=== PATIENT | female | born 1990 | race Caucasian/White ===

== ENCOUNTER 2017-01-15 20:18 | Inpatient (IN) ==
[2017-01-15 21:21] LABS: Bilirubin,Urine Negative (Negative); Blood,Urine Negative (Negative); Clarity,Urine Cloudy (Clear); Color,Urine Yellow (Yellow); Glucose,Urine (UA) Normal (Normal); Ketones,Urine Negative (Negative); Leukocyte Esterase,Urine Small (Negative); Nitrite,Urine Positive (Negative); PH,Urine 7.5 pH Units (5.0-8.0); Protein,Urine Negative (Neg-Trace); Specific Gravity,Urine 1.018 (1.010-1.025); Urobilinogen,Urine Normal (Normal)
[2017-01-15 21:22] LABS: Bacteria,Urine Many per hpf (None-Few); Hyaline Casts,Urine None Seen per lpf (None-Few); RBC,Urine 0-3 per hpf (0-3); Squamous Epithelial Cell,Urine Many per lpf (None-Few)
[2017-01-15 21:26] LABS: Basophils % 0.2 %; Eosinophils # 0.1 K/mcL (0.0-0.6); Eosinophils % 0.9 %; Hematocrit 44.2 % (35.3-44.9); Hemoglobin 14.5 g/dL (11.5-15.4); Immature Granulocytes % 0.3 % (0-4); Lymphocytes # 1.3 K/mcL (0.6-4.6); Lymphocytes % 10.5 %; Mean Corpuscular HGB Conc 32.8 g/dL (31.6-35.5); Mean Corpuscular Hemoglobin 28.9 pg (28.0-33.3); Mean Corpuscular Volume 88.2 fL (83.0-100.0); Monocytes # 0.9 K/mcL (0.0-1.3); Monocytes % 7.3 %; Neutrophils # 9.7 K/mcL (1.6-8.9); Platelet Count 258 K/mcL (140-400); Red Blood Count 5.01 M/mcL (3.82-4.97); Segmented Neutrophils % 80.8 %
[2017-01-15 21:35] LABS: Blood Urea Nitrogen 10 mg/dL (7-20); Carbon Dioxide 24 mEq/L (19-29); Chloride 105 mEq/L (98-109); Potassium 3.5 mEq/L (3.5-4.5); Sodium 140 mEq/L (136-145)
[2017-01-15 21:36] LABS: BUN/Creatinine Ratio 13 (6-26); Calcium 9.9 mg/dL (8.6-10.8); Glucose 105 mg/dL (70-99); Osmolality,Calculated 289 (280-300); eGFR For African Americans > 60 (> 60); eGFR For Non-African Americans > 60 (> 60)
[2017-01-15] MEDS ORDERED: 0.9 % Sodium Chloride 1,000 ML IVC ONE (21:48)
--- NOTE | 2017-01-15 21:51 | Emergency Department Note ---
Disposition Clinical Impression: Pyelonephritis Disposition: Admitted As Inpatient Condition: Good Referrals: NO,PCP [Primary Care Provider] - Forms: ED Satisfaction Letter Time of Disposition: 21:51 Female Urogenital HPI - General Chief complaint: ED Urogenital-Female Stated complaint: possible kidney infection Time Seen by Provider: 01/15/17 21:31 Source: patient Mode of arrival: ambulatory Limitations: language barrier Nursing Notes Reviewed: Yes Vital Signs Reviewed: Yes - History of Present Illness HPI Narrative: 26-year-old with a history of multiple previous kidney infections comes in with right flank pain fever or burning on urination. Patient's very nauseated came not eat or drink she feels she is dehydrated. Pt Subjective Complaint: dysuria, "UTI" Onset (ago): Just [employer] Location: suprapubic Radiation: R flank Severity: moderate Quality: aching Duration: constant Improves with: none Worsens with: none Urinary Symptoms: dysuria, urgency, frequency, foul smelling urine : no - Related Data Home Medications Medication Instructions Recorded Confirmed No Known Home Drugs 01/15/17 01/15/17 Allergies Allergy/AdvReac Type Severity Reaction Status Date / Time No Known Allergies Allergy Verified 01/15/17 20:25 Constitutional: Reports: fever. Denies: chills, weakness, weight change Eyes: Denies: eye pain, eye discharge, vision change ENT ED: Denies: ear pain, throat pain, dental pain, hearing loss, epistaxis, congestion, dysphagia Cardiovascular: Denies: chest pain, palpitations, dyspnea on exertion, edema, syncope Respiratory: Denies: cough, dyspnea, wheezes, hemoptysis, stridor Gastrointestinal: Reports: abdominal pain. Denies: nausea, vomiting, diarrhea, constipation, hematemesis, melena, hematochezia Genitourinary: Denies: dysuria, frequency, hematuria, discharge Musculoskeletal: Reports: back pain. Denies: neck pain, arthralgia, myalgia Integumentary: Denies: rash, abrasion, lesions Neurological: Denies: headache, weakness, numbness, paresthesias, confusion, abnormal gait, vertigo Psychiatric: Denies: anxiety, depression, suicidal thoughts, homicidal thoughts , auditory hallucinations, visual hallucinations Endocrine: Denies: fatigue Hematological/Lymphatic: Denies: easy bleeding, easy bruising Allergic/Immunologic: Denies: facial swelling, urticaria Past Medical History - Past Medical History Medical history: Reports: kidney stones Surgical history: Reports: other (Suction D&C 2 with the ureteroscope for kidney stone extraction) Psychiatric history: Reports: no psych history - Social History Smoking Status: Current every day smoker Smokeless Tobacco Status: No Alcohol use: Reports: none Drug use: Reports: none Physical Exam - General Limitations: language barrier General appearance: alert - Head Head exam: atraumatic, normocephalic, normal inspection - Eye Eye exam: Present: normal appearance, PERRL, EOMI - ENT ENT exam: mucous membranes dry - Neck Neck exam: Present: normal inspection, full ROM, trachea midline - Chest Chest inspection: Present: normal inspection, symmetric chest wall rise - Respiratory Respiratory exam: Present: normal lung sounds bilaterally - Cardiovascular Cardiovascular exam: Present: regular rate - Abdominal Exam Abdominal exam: Present: soft, tenderness. Absent: distention, guarding, rebound, rigidity Abdominal tenderness: Present: suprapubic - Extremities Exam Extremities exam: Present: normal inspection, full ROM. Absent: tenderness, pedal edema - Expanded Lower Extremity Exam Neurovascular/Tendon exam: Absent: motor deficit, sensory deficit, tendon deficit Gait: observed and normal - Back Exam Back exam: Present: normal inspection, full ROM. Absent: tenderness - Neurological Exam Neurological exam: Present: alert, oriented X3 - Psychiatric Psychiatric exam: Present: normal affect, normal mood - Skin Skin exam: Present: warm, dry, intact, normal color Course - Reevaluation(s) Reevaluation #1: 26-year-old with fever right flank pain. 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 Patient is not eating or drinking will require admission. Time: 21:51 - Consultations Consultation #1: Discussed with Dr. Oliveros, admit Time: 22:17 Vital Signs Temperature 101.4 F H 01/15/17 20:19 Pulse Rate 103 01/15/17 20:19 Respiratory Rate 16 01/15/17 20:19 Blood Pressure 112/70 01/15/17 20:19 O2 Sat by Pulse Oximetry 97 01/15/17 20:19 Temperature 101.4 F H 01/15/17 20:19 Pulse Rate 103 01/15/17 20:19 Respiratory Rate 16 01/15/17 20:19 Blood Pressure 112/70 01/15/17 20:19 O2 Sat by Pulse Oximetry 97 01/15/17 20:19 Oxygen Delivery Oxygen Delivery Room Air Urogenital-Female - Lab Data Lab results reviewed: Yes I reviewed the patient's lab results. Result diagrams: 01/15/17 20:57 01/15/17 20:57 Lab Results 01/15/17 01/15/17 01/15/17 Range/Units 20:57 20:57 20:58 WBC 12.0 H (4.3-11.1) K/mcL RBC 5.01 H (3.82-4.97) M/mcL Hgb 14.5 (11.5-15.4) g/dL Hct 44.2 (35.3-44.9) % MCV 88.2 (83.0-100.0) fL MCH 28.9 (28.0-33.3) pg MCHC 32.8 (31.6-35.5) g/dL RDW 12.0 (11.5-14.5) % Plt Count 258 (140-400) K/mcL MPV 10.0 (9.4-12.4) fL Immature Gran % 0.3 (0-4) % Seg Neutrophils % 80.8 % Lymphocytes % 10.5 % Monocytes % 7.3 % Eosinophils % 0.9 % Basophils % 0.2 % Neutrophils # 9.7 H (1.6-8.9) K/mcL Lymphocytes # 1.3 (0.6-4.6) K/mcL Monocytes # 0.9 (0.0-1.3) K/mcL Eosinophils # 0.1 (0.0-0.6) K/mcL Basophils # 0.0 (0.0-0.2) K/mcL Sodium 140 (136-145) mEq/L Potassium 3.5 (3.5-4.5) mEq/L Chloride 105 (98-109) mEq/L Carbon Dioxide 24 (19-29) mEq/L BUN 10 (7-20) mg/dL Creatinine 0.79 (0.57-1.11) mg/dL Est GFR ( Amer) > 60 (> 60) Est GFR (Non-Af Amer) > 60 (> 60) BUN/Creatinine Ratio 13 (6-26) Glucose 105 H (70-99) mg/dL Calculated Osmolality 289 (280-300) Calcium 9.9 (8.6-10.8) mg/dL Urine Color Yellow (Yellow) Urine Clarity Cloudy A (Clear) Urine pH 7.5 (5.0-8.0) pH Units Ur Specific Central 1.018 (1.010-1.025) Urine Protein Negative (Neg-Trace) mg/dL Urine Glucose (UA) Normal (Normal) mg/dL Urine Ketones Negative (Negative) mg/dL Urine Blood Negative (Negative) Urine Nitrite Positive A (Negative) Urine Bilirubin Negative (Negative) Urine Urobilinogen Normal (Normal) mg/dL Ur Leukocyte Esterase Small H (Negative) Urine Microscopic RBC 0-3 (0-3) per hpf Urine Microscopic WBC 5-15 H (0-3) per hpf Ur Squamous Epith Cells Many H (None-Few) per lpf Urine Bacteria Many H (None-Few) per hpf Hyaline Casts None Seen (None-Few) per lpf Ur Culture Indicated? YES A (NO) Urine Test (Negative) 01/15/17 Range/Units 20:58 WBC (4.3-11.1) K/mcL RBC (3.82-4.97) M/mcL Hgb (11.5-15.4) g/dL Hct (35.3-44.9) % MCV (83.0-100.0) fL MCH (28.0-33.3) pg MCHC (31.6-35.5) g/dL RDW (11.5-14.5) % Plt Count (140-400) K/mcL MPV (9.4-12.4) fL Immature Gran % (0-4) % Seg Neutrophils % % Lymphocytes % % Monocytes % % Eosinophils % % Basophils % % Neutrophils # (1.6-8.9) K/mcL Lymphocytes # (0.6-4.6) K/mcL Monocytes # (0.0-1.3) K/mcL Eosinophils # (0.0-0.6) K/mcL Basophils # (0.0-0.2) K/mcL Sodium (136-145) mEq/L Potassium (3.5-4.5) mEq/L Chloride (98-109) mEq/L Carbon Dioxide (19-29) mEq/L BUN (7-20) mg/dL Creatinine (0.57-1.11) mg/dL Est GFR ( Amer) (> 60) Est GFR (Non-Af Amer) (> 60) BUN/Creatinine Ratio (6-26) Glucose (70-99) mg/dL Calculated Osmolality (280-300) Calcium (8.6-10.8) mg/dL Urine Color (Yellow) Urine Clarity (Clear) Urine pH (5.0-8.0) pH Units Ur Specific Central (1.010-1.025) Urine Protein (Neg-Trace) mg/dL Urine Glucose (UA) (Normal) mg/dL Urine Ketones (Negative) mg/dL Urine Blood (Negative) Urine Nitrite (Negative) Urine Bilirubin (Negative) Urine Urobilinogen (Normal) mg/dL Ur Leukocyte Esterase (Negative) Urine Microscopic RBC (0-3) per hpf Urine Microscopic WBC (0-3) per hpf Ur Squamous Epith Cells (None-Few) per lpf Urine Bacteria (None-Few) per hpf Hyaline Casts (None-Few) per lpf Ur Culture Indicated? (NO) Urine Test Negative (Negative)
[2017-01-15] MEDS ORDERED: Acetaminophen 325 MG TABLET PO PRN (22:54)
[2017-01-15] MEDS ORDERED: Ondansetron 4 MG/2 ML VIAL IVP PRN (22:54)
[2017-01-15] MEDS ORDERED: *HR* Morphine 2 MG/ML SYRINGE IVP PRN ×3 (22:54→23:22)
[2017-01-15] MEDS ORDERED: Naloxone 0.4 MG/ML INJ IVP PRN (22:54)
--- NOTE | 2017-01-15 23:09 | Internal Med History&Physical ---
Date of Encounter: 01/15/17 Time of Encounter: 23:05 Assessment and Plan (1) Pyelonephritis Current visit: Yes Status: Acute Patient presents with dysuria, flank pain, CVA tenderness. UA shows positive nitrates and small leukocyte esterase. Culture is pending. Review of past culture results show that the patient has had Escherichia coli infections in the past that are resistant to fluoroquinolones. Rocephin has been given the ED , we will continue Rocephin 1 g daily. We will obtain some noncontrast CT of the abdomen and pelvis to look for stone as well as possible signs of perinephric abscess. We will continue with fluid hydration and pain control. (2) Sepsis Current visit: Yes Status: Acute Patient meets sepsis criteria with a leukocytosis of 12.0, fever or 101.4, tachycardia with urinary tract infection to be the presumed source as discussed above. Patient was given an initial liter bolus in the emergency department, will give 2 more liters and then initiate IV maintenance fluid. Antibiotics have been initiated, blood and urine cultures have been drawn. Initial lactate is negative at 0.6. Qualifiers: Sepsis type: sepsis due to unspecified organism Qualified Code(s): A41.9 - Sepsis, unspecified organism (3) History of kidney stones Current visit: Yes Status: Acute Patient has had a history of kidney stones in the past that have required surgical removal by urology. UA was negative for blood. Given the patient's infections and symptoms we will obtain a noncontrast CT to rule out Stone as a source of infection (4) DVT prophylaxis Current visit: Yes Status: [facility] - H&P: HPI Chief complaint: Back pain/dysuria Admitted From: Emergency Dept Plans for Post Hospital Care: Home History of present illness: Ms. Bello is a 26 year old female with history of kidney stones and recurrent UTIs presents with back/flank pain and dysuria. Patient states her symptoms started 3 days ago, initially with right-sided back and flank pain and the patient eventually developed dysuria and suprapubic pain. Patient states the pain now radiates across her entire back, she has not been able to eat and has had difficulty keeping down fluids. She reports fevers and chills. She denies hematuria, any new sexual partners, vaginal discharge, lesions or sores in the genital area. She states she is sexually active and uses condoms. She states there is no chance she could be . Patient has been evaluated by urology in the past for recurrent UTIs and has been tested for vesiculoureteral reflux which was not present. Patient states that she has had a kidney stone in the past and has seen urology for kidney stone removal. Past Med Surg Social Fam HX - Past Medical History Medical history: kidney stones Psychiatric history: no psych history - Past Surgical History Surgical History: other (Suction D&C 2 with the ureteroscope for kidney stone extraction) - Social History Smoking Status: Current every day smoker Packs per day: 1/2 Smokeless Tobacco Status: No Alcohol use: none Drug use: none - Family History Mother Living Status: Hx Family Cardiac Disorders: Yes (anersyum) Hx Family Respiratory Disorders: No Hx Family Cancer: No Hx Family GI Disorders: No Hx Family Endocrine Disorder: No Hx Family Neuromuscular Disorders: No Hx Family Neurologic Disorders: No Hx Family HEENT Disorders: No Hx Family Autoimmune Disorders: No Internal Medicine - H&P: Meds No Known Home Drugs 01/15/17 [History] Allergies No Known Allergies Allergy (Verified 01/15/17 20:25) All Systems PM: A 10-system review of systems was performed and is negative for pertinent findings except as documented above in the HPI. - Constitutional Constitutional: chills, fever(s), lethargy - EENT Eyes: no blurry vision, no change in vision Nose, mouth and throat: no sinus pain, no sinus pressure, no sore throat - Cardiovascular Cardiovascular ROS IM: no chest pain, no dyspnea - Respiratory Respiratory: no cough, no dyspnea, no chest congestion - Gastrointestinal Gastrointestinal: abdominal pain, nausea, no diarrhea, no vomiting - Genitourinary Genitourinary: dysuria, pelvic pain, urinary frequency, urinary urgency, no genital lesions, no hematuria, no urinary incontinence, no vaginal discharge - Musculoskeletal Musculoskeletal ROS IM: no numbness, no tingling - Integumentary Integumentary IM: no rash - Neurological Neurological ROS: no dizziness, no frequent falls, no weakness - Endocrine Endocrine IM: no polydipsia, no polyuria - Constitutional Vitals: Temp Pulse Resp BP Pulse Ox 101.4 F H 103 16 112/70 97 01/15/17 20:19 01/15/17 20:19 01/15/17 20:19 01/15/17 20:19 01/15/17 20:19 General appearance: Present: A&O X 3 Exam: Appears uncomfortable, patient is constantly moving in bed and does not seem to be able to get into a comfortable position. - Eye Eye exam: Present: EOMI, PERRL - ENT ENT exam: Present: mucous membranes dry - Respiratory Respiratory exam: Present: CTAB. Absent: rales, rhonchi, wheezes - Cardiovascular Cardiovascular exam: Present: tachycardia. Absent: gallop, irregular rhythm, rubs, systolic murmur - GI/Abdominal GI/Abdominal exam: Present: normal bowel sounds, soft, tenderness (Suprapubic). Absent: distended, firm, rigid - Extremities Exam Extremities exam: Present: warm. Absent: pedal edema, tenderness - Back Exam Back exam: Present: CVA tenderness (L), CVA tenderness (R) (Right greater than left). Absent: rash noted - Neurological Exam Neurological exam: Present: alert, CN II-XII intact, oriented X3, no focal deficits - Psychiatric Psychiatric exam: Present: normal affect, normal mood - Skin Skin exam: Present: dry, intact, warm Internal Med - H&P Results - Labs CBC & Chem 7: 01/15/17 20:57 01/15/17 20:57
[2017-01-16] MEDS: 0.9 % Sodium Chloride 1,000 ML IVC SCH ×5 (00:30→13:33)
--- NOTE | 2017-01-16 01:57 | Event Note ---
Date of Encounter: 01/16/17 Time of Encounter: 01:54 Patient and examined with medical detailist. Agree with assessment and plan. Patient with recurrent urinary tract infection since the age of 6 years presents with acute pyelonephritis. She has prior history of kidney stones so a CT scan of the abdomen and pelvis was obtained without contrast and showed no evidence of obstructive uropathy. Onset of symptoms 3 days ago. Patient has also been having productive cough for the past week. X-ray was performed and shows left basilar pneumonia. Patient will be covered with ceftriaxone and azithromycin for UTI and community acquired pneumonia. She has not been on antibiotics as an outpatient. Sputum, urine and blood cultures.
[2017-01-16] MEDS: Azithromycin 500 MG in D5% in Water 250 ML IVPB SCH (03:10)
[2017-01-16 04:39] LABS: Basophils % 0.2 %; Eosinophils # 0.1 K/mcL (0.0-0.6); Eosinophils % 1.1 %; Hematocrit 37.4 % (35.3-44.9); Immature Granulocytes % 0.4 % (0-4); Lymphocytes # 2.4 K/mcL (0.6-4.6); Mean Corpuscular HGB Conc 32.6 g/dL (31.6-35.5); Mean Corpuscular Hemoglobin 29.1 pg (28.0-33.3); Mean Corpuscular Volume 89.3 fL (83.0-100.0); Mean Platelet Volume 10.2 fL (9.4-12.4); Monocytes # 1.3 K/mcL (0.0-1.3); Monocytes % 10.7 %; Neutrophils # 8.5 K/mcL (1.6-8.9); Platelet Count 216 K/mcL (140-400); Red Blood Count 4.19 M/mcL (3.82-4.97); Red Cell Distribution Width 11.9 % (11.5-14.5); Segmented Neutrophils % 68.6 %
[2017-01-16 04:46] LABS: Hemoglobin 12.2 g/dL (11.5-15.4)
[2017-01-16 05:25] LABS: BUN/Creatinine Ratio 10 (6-26); Blood Urea Nitrogen 7 mg/dL (7-20); Calcium 8.5 mg/dL (8.6-10.8); Carbon Dioxide 19 mEq/L (19-29); Chloride 110 mEq/L (98-109); Glucose 143 mg/dL (70-99); Magnesium 1.5 mg/dL (1.6-2.6); Osmolality,Calculated 288 (280-300); Potassium 3.5 mEq/L (3.5-4.5); Sodium 139 mEq/L (136-145); eGFR For African Americans > 60 (> 60); eGFR For Non-African Americans > 60 (> 60)
[2017-01-16] MEDS ORDERED: Magnesium Sulfate 2 GM in D5% in Water 100 ML IVPB ONE (06:28)
[2017-01-16] MEDS: *HR* Morphine 2 MG/ML SYRINGE IVP PRN ×4 (08:20→23:36)
[2017-01-16] MEDS: Ondansetron 4 MG/2 ML VIAL IVP PRN ×2 (08:33→17:34)
--- NOTE | 2017-01-16 15:01 | Internal Med Progress Note ---
Date of Encounter: 01/16/17 Time of Encounter: 08:50 - Assessment and plan (1) Sepsis Current Visit: Yes Status: Suspected Assessment and plan: Continue IV antibiotics. Follow culture results. Most likely from acute pyelonephritis. Continue IV fluids and monitor vital signs. CT scan of the abdomen and pelvis shows possible basilar infiltrates was likely from atelectasis. Prescribe incentive spirometry. Moderate risk for complications Qualifiers: Sepsis type: Escherichia coli Qualified Code(s): A41.51 - Sepsis due to Escherichia coli [E. coli] (2) Pyelonephritis Current Visit: Yes Status: Acute Assessment and plan: Continue IV antibiotics. Pain control. (3) History of kidney stones Current Visit: Yes Status: Acute Assessment and plan: CT of the abdomen does not show any obstructive uropathy. - Subjective Interval history: Patient is awake and alert. Complains of right flank pain. No dysuria. Tolerating diet well. Does have some nausea. No fever or chills reported overnight. - Constitutional Vitals: Temp Pulse Resp BP Pulse Ox 98.3 F 75 15 88/54 98 01/16/17 07:55 01/16/17 07:55 01/16/17 07:55 01/16/17 07:55 01/16/17 07:55 General appearance: Present: mild distress, A&O X 3, pleasant, answers questions appropriately - Neck Neck exam general surgery: Present: supple, trachea midline. Absent: lymphadenopathy - Respiratory Respiratory exam: Present: CTAB. Absent: accessory muscle use, rales, rhonchi, wheezes - Cardiovascular Cardiovascular exam: Present: RRR, +S1, +S2. Absent: diastolic murmur, gallop, rubs, systolic murmur - GI/Abdominal GI/Abdominal exam: Present: normal bowel sounds, soft, no peritoneal signs. Absent: distended, tenderness - Extremities Exam Extremities exam: Present: warm, radial pulses palpable and symetrical. Absent : calf tenderness, cyanotic, pedal edema Internal Medicine: Result - Labs CBC & Chem 7: 01/16/17 03:53 01/16/17 03:53 - Impressions Impressions Chest X-Ray 01/16/17 23:34 IMPRESSION: Mild/early left lower lobe pneumonia. D/ / Francisco Mendosa MD / Francisco Mendosa MD Interpreting Provider: Francisco Mendosa MD Consult Discharge Plan - Plan Referrals: Nishant Chang DO [Primary Care Provider] - - Attending Attestation This document has been at least partially created by [employer] recognition technology by Dr. Alarcon. Errors in grammar, wording or other phrases may exist. If errors are found after the documentation is signed, they will be addressed individually in the addendum section of this document when appropriate.
[2017-01-16] MEDS: *HR* HYDROcodone/Acet 5/325 mg TABLET PO PRN (19:44)
[2017-01-17] MEDS: *HR* HYDROcodone/Acet 5/325 mg TABLET PO PRN ×3 (02:33→14:42)
[2017-01-17] MEDS: Azithromycin 500 MG in D5% in Water 250 ML IVPB SCH (02:34)
[2017-01-17] MEDS: Ondansetron 4 MG/2 ML VIAL IVP PRN (03:54)
[2017-01-17 04:46] LABS: Basophils % 0.2 %; Eosinophils # 0.3 K/mcL (0.0-0.6); Eosinophils % 3.8 %; Hematocrit 33.6 % (35.3-44.9); Immature Granulocytes % 0.6 % (0-4); Lymphocytes # 2.3 K/mcL (0.6-4.6); Lymphocytes % 26.2 %; Mean Corpuscular HGB Conc 32.7 g/dL (31.6-35.5); Mean Corpuscular Hemoglobin 29.6 pg (28.0-33.3); Mean Corpuscular Volume 90.6 fL (83.0-100.0); Mean Platelet Volume 10.1 fL (9.4-12.4); Monocytes # 0.9 K/mcL (0.0-1.3); Monocytes % 10.6 %; Neutrophils # 5.2 K/mcL (1.6-8.9); Platelet Count 209 K/mcL (140-400); Red Blood Count 3.71 M/mcL (3.82-4.97); Segmented Neutrophils % 58.6 %
[2017-01-17 05:00] LABS: BUN/Creatinine Ratio 11 (6-26); Blood Urea Nitrogen 7 mg/dL (7-20); Calcium 8.4 mg/dL (8.6-10.8); Carbon Dioxide 21 mEq/L (19-29); Chloride 112 mEq/L (98-109); Glucose 100 mg/dL (70-99); Osmolality,Calculated 286 (280-300); Potassium 3.7 mEq/L (3.5-4.5); Sodium 139 mEq/L (136-145); eGFR For African Americans > 60 (> 60); eGFR For Non-African Americans > 60 (> 60)
--- NOTE | 2017-01-17 16:04 | Internal Med Progress Note ---
Date of Encounter: 01/17/17 Time of Encounter: 08:35 - Assessment and plan (1) Sepsis Current Visit: Yes Status: Suspected Assessment and plan: Continue IV antibiotics. Leukocytosis has improved. Awaiting culture results. Urine culture positive for gram-negative rods. Blood cultures have been negative. Moderate risk for complications. Qualifiers: Sepsis type: Escherichia coli Qualified Code(s): A41.51 - Sepsis due to Escherichia coli [E. coli] (2) Pyelonephritis Current Visit: Yes Status: Chronic Assessment and plan: Due to gram-negative rods. Awaiting final culture results. Continue current IV antibiotics. (3) History of kidney stones Current Visit: Yes Status: Acute - Subjective Interval history: Patient is doing much better today. Flank pain is improving. No dysuria. No fever chills or night sweats. Tolerating diet well. - Constitutional Vitals: Temp Pulse Resp BP Pulse Ox 98.9 F 95 16 113/61 100 01/17/17 15:05 01/17/17 15:05 01/17/17 15:05 01/17/17 15:05 01/17/17 15:05 General appearance: Present: mild distress, A&O X 3, pleasant, answers questions appropriately - Neck Neck exam general surgery: Present: supple, trachea midline. Absent: lymphadenopathy - Cardiovascular Cardiovascular exam: Present: RRR, +S1, +S2. Absent: diastolic murmur, gallop, rubs, systolic murmur - GI/Abdominal GI/Abdominal exam: Present: normal bowel sounds, soft, no peritoneal signs. Absent: distended, tenderness Additional comments: Mild left CVA tenderness - Neurological Exam Neurological exam: Present: alert, oriented X3, no focal deficits. Absent: facial droop, speech deficit Internal Medicine: Result - Labs CBC & Chem 7: 01/17/17 04:12 01/17/17 04:12 Labs: Short CBC 01/17/17 Range/Units 04:12 WBC 8.9 (4.3-11.1) K/mcL Hgb 11.0 L (11.5-15.4) g/dL Hct 33.6 L (35.3-44.9) % Plt Count 209 (140-400) K/mcL Neutrophils # 5.2 (1.6-8.9) K/mcL BMP 05/26/17 04:12 Sodium 139 Potassium 3.7 Chloride 112 H Carbon Dioxide 21 BUN 7 Creatinine 0.63 Glucose 100 H Calcium 8.4 L Consult Discharge Plan - Plan Referrals: Nishant Chang DO [Primary Care Provider] - - Attending Attestation This document has been at least partially created by [employer] recognition technology by Dr. Alarcon. Errors in grammar, wording or other phrases may exist. If errors are found after the documentation is signed, they will be addressed individually in the addendum section of this document when appropriate.
[2017-01-17] MEDS: *HR* HYDROcodone/Acet 10/325 mg TABLET PO PRN (20:18)
[2017-01-18] MEDS: *HR* HYDROcodone/Acet 10/325 mg TABLET PO PRN ×2 (00:21→04:24)
[2017-01-18] MEDS: Azithromycin 500 MG in D5% in Water 250 ML IVPB SCH (02:12)
--- NOTE | 2017-01-18 07:49 | Discharge Summary ---
Date of Encounter: 01/18/17 Time of Encounter: 07:47 - Discharge Diagnosis (1) Pyelonephritis Priority: Primary Status: Chronic (2) Sepsis Priority: Secondary Status: Resolved Qualifiers: Sepsis type: Escherichia coli Qualified Code(s): A41.51 - Sepsis due to Escherichia coli [E. coli] (3) History of kidney stones Priority: Secondary Status: Acute - Discharge Medications Prescriptions: Ibuprofen [Motrin] 800 mg PO Q8HR PRN #20 tablet PRN Reason: Moderate Pain HYDROcodone/Acet 5/325 mg [Grace 5-325 mg] 1 tab PO Q6H PRN #10 tab PRN Reason: Severe Pain levoFLOXacin [Levaquin] 500 mg PO DAILY #10 tablet Home Medications: HYDROcodone/Acet 5/325 mg [Grace 5-325 mg] 1 tab PO Q6H PRN #10 tab 01/18/17 [Rx ] Ibuprofen [Motrin] 800 mg PO Q8HR PRN #20 tablet 01/18/17 [Rx] levoFLOXacin [Levaquin] 500 mg PO DAILY #10 tablet 01/18/17 [Rx] Allergies/Adverse Reactions: Allergies No Known Allergies Allergy (Verified 01/15/17 20:25) Date of admission: 01/16/17 06:50 Primary care physician: Nishant Chang DO Discharging clinician: Vu Alarcon Anticipated date of discharge: 01/18/17 - Patient Status Disposition: Home, Self-Care Condition: Good Functional capacity at discharge: independent ambulation Overall status at discharge: patient is progressing back to baseline - Discharge Instructions Instructions: Urinary Tract Infection in Women (DC), Acute Pyelonephritis (DC) Follow Up With: Nishant Chang DO [Primary Care Provider] - (in 1-2 weeks) - Diet and Activity Activity: increase activity as tolerated Diet: regular diet Hospital course: Ms. Bello is a 26 year old female patient with a history of recurrent urinary tract infections or nephrolithiasis was admitted to the ER with complaints of bilateral flank pain along with fever and chills. She was diagnosed with acute pyelonephritis and sepsis and was treated with IV antibiotics. Her urine culture is positive for Escherichia coli. Her blood cultures have been negative. CT scan of the abdomen did not reveal any obstructing stones. Her sepsis has now resolved. She continues to have some flank pain especially in the morning but most of her other symptoms have subsided. She is clinically stable for discharge on antibiotic course to complete treatment for Escherichia coli infection. - Time Spent with Patient Total time spent providing and/or coordinating discharge services: Less than 30 minutes (25 min) - Constitutional Vitals: Temp Pulse Resp BP Pulse Ox 98.4 F 66 14 100/65 99 01/18/17 03:35 01/18/17 03:35 01/18/17 03:35 01/18/17 03:35 01/18/17 03:35 General appearance: Present: mild distress, A&O X 3, pleasant, answers questions appropriately - Cardiovascular Cardiovascular exam: Present: RRR, +S1, +S2. Absent: diastolic murmur, gallop, rubs, systolic murmur - GI/Abdominal GI/Abdominal exam: Present: normal bowel sounds, soft, no peritoneal signs. Absent: distended, tenderness Additional comments: Mild bilateral CVA tenderness - Extremities Exam Extremities exam: Present: warm, radial pulses palpable and symetrical. Absent : calf tenderness, cyanotic, pedal edema - Skin Skin exam: Present: dry, intact - Attending Attestation This document has been at least partially created by [employer] recognition technology by Dr. Alarcon. Errors in grammar, wording or other phrases may exist. If errors are found after the documentation is signed, they will be addressed individually in the addendum section of this document when appropriate.
[2017-01-18 07:53] VITALS: BP 99/61
[2017-01-18] MEDS ORDERED: Ibuprofen 800 MG TABLET PO PRN (07:59)
== END 2017-01-18 09:18 | disposition home or self-care (01) | DRG 720 ==
LOC: EMEROO 20:18 → 3BNU 20:18 → SUATTDRO 01-16 06:50
PROVIDERS: ADMIT Registered Nurse; ATTEND Internal Medicine

== ENCOUNTER 2018-11-24 17:33 | Inpatient (IN) ==
[~2018-11-24 17:33] MED LIST: *HR* FentaNYL (PF) 100 MCG/2 ML VIAL EP ONE; *HR* Nalbuphine 10 MG/ML AMPUL IVP PRN; *HR* Ropivacaine/PF 0.2% 20 ML VIAL EP ONE; EPHEDrine 50 MG/ML VIAL IVP PRN; Famotidine 20 MG/2 ML VIAL IVP PRN; Lidocaine 1% 20 ML MDV INFILT PRN; Metoclopramide 10 MG/2 ML VIAL IVP PRN; Naloxone 0.4 MG/ML INJ IVP PRN; Ondansetron 4 MG/2 ML VIAL IVP PRN; Penicillin G Potassium 5,000,000 UNIT in 0.9 % Sodium Chloride Mini Bag 100 ML IVPB ONE; Ringers Solution, Lactated 1,000 ML IVC SCH; Ringers Solution, Lactated 1,000 ML ONE
[2018-11-24] MEDS ORDERED: Epidural Premix (fent/bupiv) 110 ML EP SCH (17:45)
[2018-11-24 17:55] LABS: Basophils # 0.1 K/mcL (0.0-0.2); Basophils % 0.4 %; Eosinophils # 0.1 K/mcL (0.0-0.6); Eosinophils % 0.6 %; Hematocrit 33.3 % (35.3-44.9); Hemoglobin 11.1 g/dL (11.5-15.4); Immature Granulocytes % 3.5 % (0-4); Lymphocytes # 2.7 K/mcL (0.6-4.6); Lymphocytes % 13.1 %; Mean Corpuscular HGB Conc 33.3 g/dL (31.6-35.5); Mean Corpuscular Hemoglobin 31.1 pg (28.0-33.3); Mean Corpuscular Volume 93.3 fL (83.0-100.0); Mean Platelet Volume 10.7 fL (9.4-12.4); Monocytes # 1.7 K/mcL (0.0-1.3); Monocytes % 8.4 %; Neutrophils # 15.2 K/mcL (1.6-8.9); Platelet Count 191 K/mcL (140-400); Red Blood Count 3.57 M/mcL (3.82-4.97); Red Cell Distribution Width 12.8 % (11.5-14.5)
[2018-11-24 17:57] LABS: Bilirubin,Urine Negative (Negative); Blood,Urine Moderate (Negative); Clarity,Urine Cloudy (Clear); Color,Urine Yellow (Yellow); Glucose,Urine (UA) Normal (Normal); Ketones,Urine Negative (Negative); Leukocyte Esterase,Urine Large (Negative); Nitrite,Urine Positive (Negative); Protein,Urine Negative (Neg-Trace); Specific Gravity,Urine 1.014 (1.010-1.025); Urobilinogen,Urine Normal (Normal)
[2018-11-24 17:59] LABS: Bacteria,Urine Many per hpf (None-Few); Hyaline Casts,Urine None Seen per lpf (None-Few); RBC,Urine 0-3 per hpf (0-3); Squamous Epithelial Cell,Urine Many per lpf (None-Few); WBC,Urine 15-30 per hpf (0-3)
--- NOTE | 2018-11-24 18:00 | Anesthesia Evaluation PreOp ---
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: Denies Any Significant HX Other Medical History: Denies Any Significant HX, Other (history of opiate use, subutex, recent UTI with treatment Macrobid) Anesthesia History: No Prior Anesthetic Complications, Past Anesthesia (D&C x 2, wisdom teeth extraction) : Yes Test: Positive Alcohol Use: none Drug use: opiates Medications and Allergies Buprenorphine HCl [Subutex] 1 tab PO DAILY 10/20/18 [History] Ferrous Sulfate [Iron] 1 tab PO DAILY 10/20/18 [History] Cephalexin [Keflex] 500 mg PO BID #14 capsule 10/21/18 [Rx] Nitrofurantoin Monohyd/M-Cryst [Macrobid 100 mg Capsule] 100 mg PO DAILY #30 capsule 10/21/18 [Rx] Allergy/AdvReac Type Severity Reaction Status Date / Time No Known Allergies Allergy Verified 11/24/18 16:25 - Meds/Allergy Pre-op Review Medications Reviewed: Yes Allergies Reviewed: Yes Beta Blockers on Current Med List: No Anesthesia Exam BP 107/62 P 82 T 98.4 R 20 Height: 5'2" Weight: 56.1kg NPO (# of Hours): 8 Pain Scale: 9 Pain Scale Used: Numeric (1 - 10) - HEENT Pupil (Motor): Pupils equal Mallampati: II Teeth: Normal Oral Opening: Greater than 3 - DRIVER SERVICE TECHNICIAN LOC: Oriented DRIVER SERVICE TECHNICIAN Motor: Normal RUE, Normal LUE, Normal RLE, Normal LLE, Normal Face DRIVER SERVICE TECHNICIAN Sensory: Normal: RUE, LUE, RLE, LLE, Face - Cardiac Rhythm: Regular Murmur: None JVD: No Carotid Bruit: No - Pulmonary Breath Sounds: bilateral Clear Respiratory Effort: Symmetrical Anesthesia Assess/Plan ASA Score: 2 Level of consciousness: Cooperative, Oriented, Tranquil Anesthetic Plan: Epidural Autologous Blood: No Monitoring Plan: Standard Monitors Recovery Plan: Other
[2018-11-24 18:06] LABS: Amphetamine Screen,Urine Negative ng/mL (Cutoff=1000); Barbiturate Screen,Urine Negative ng/mL (Cutoff=200); Benzodiazepines Screen,Urine Negative ng/mL (Cutoff=200); Cannabinoid Screen,Urine Negative ng/mL (Cutoff = 50); Cocaine Screen,Urine Negative ng/mL (Cutoff= 300); Opiate Screen,Urine Negative ng/mL (Cutoff=300); Phencyclidine Screen,Urine Negative ng/mL (Cutoff=25)
--- NOTE | 2018-11-24 18:07 | OB/GYN History & Physical ---
Date of Encounter: 11/24/18 Time of Encounter: 18:03 Assessment and Plan (1) 37 weeks gestation of Current visit: Yes Status: Acute (2) Intrauterine Current visit: Yes Status: Acute (3) GBS screening not performed Current visit: Yes Status: Acute Penicillin per protocol (4) Type O blood, Rh negative Current visit: Yes Status: Acute Cord blood to be collected at delivery (5) NST (non-stress test) reactive Current visit: Yes Status: Acute (6) Spontaneous rupture of membranes Current visit: No Status: Acute Admit to L&D for observation of labor Expectant management Labs-CBC and clot to hold Continuous electronic monitoring Pain management plan is epidural-may have upon request Anticipate Dr. Laughlin is the OB on-call and is available as needed History of Present Illness Chief complaint: contractions/lof HPI: Ms. Bello is a 28 year old female 013 at 37 weeks 2 days gestation with an estimated date of of 12/13/18 dated by early ultrasound. She presents with complaint of contractions since 8:52 AM this morning and leakage of fluid since 1515 this afternoon while in the office getting an NST. She endorses good movement and denies vaginal bleeding. She was noncompl iant with the Subutex group and it appears she was receiving Suboxone off the street. She would also like a tubal . She does have a history of 2 hemorrhages and 2 retained placentas. She has been followed by Dr. Del Rosario throughout her . records are available electronically and have been reviewed. Labs: O- GBS unknown Hep B- HIV- T. Palladium- GC/CL- Rubella immune Varicella immune Past Med Surg Social Fam HX - Past Medical History Medical history: kidney stones, migraine Psychiatric history: anxiety, bipolar, depression - Past Surgical History Surgical History: other Additional surgical history: d&c x2. kidney stone removal - Social History Smoking Status: Current every day smoker Packs per day: 0.5 Smokeless Tobacco Status: No Alcohol use: none Drug use: opiates - Family History Mother Living Status: Cause of : car wreck Hx Family Cardiac Disorders: No Hx Family Respiratory Disorders: Yes (lung aneurysm) Hx Family Cancer: No Hx Family GI Disorders: No Hx Family Endocrine Disorder: No Hx Family Neuromuscular Disorders: No Hx Family Neurologic Disorders: Yes Hx Family HEENT Disorders: No Hx Family Autoimmune Disorders: No Obstetrical History - Pregnancies : 5 Para: 3 Term: 3 ( # 1: Vaginal delivery, 10/17/2008; bleeding, retained placental tissue, full term-- MALE 8 LB ? OZ PER DR. QUIJANO; # 2: 10-01-2010-- FULL TERM VAGINAL DEL, MALE 8 LB 6 0Z, AT [facility] -- NO COMPLIC ATIONS; # 4: 02-19-2015-- vag del at 38 weeks-- at [place], female 6 lb 5 oz, bleeding after delivery with retained placenta) : 0 Ab's: 1 (10/2014 AT 10 WEEKS AT [facility] HAD D&C -- DR. DUPREE) Livin Medications and Allergies Buprenorphine HCl [Subutex] 1 tab PO DAILY 10/20/18 [History] RX: Ferrous Sulfate [Iron] 1 tab PO DAILY 10/20/18 [History] Cephalexin [Keflex] 500 mg PO BID #14 capsule 10/21/18 [Rx] Nitrofurantoin Monohyd/M-Cryst [Macrobid 100 mg Capsule] 100 mg PO DAILY #30 capsule 10/21/18 [Rx] Allergy/AdvReac Type Severity Reaction Status Date / Time No Known Allergies Allergy Verified 11/24/18 16:25 Review of System OB All systems PM: reviewed and no additional remarkable complaints except as stated Exam - Constitutional Constitutional: well developed, well nourished, average body habitus, moderate distress - HEENT HEENT: PERRL - Neck Neck exam: full ROM - Lungs Respiratory exam: CTAB - Cardiovascular Cardiovascular exam: RRR, +S1, +S2 - Breasts Breast: bilateral: normal - Abdomen Abdomen: Present: bowel sounds normal, gravid, non tender - Extremities Extremities exam: full ROM, normal capillary refill, normal inspection, radial pulses palpable and symmetrical - Vulva Vulva: bilateral: normal - Vagina Vagina: Present: normal moisture - Cervix Dilation: 6 Effacement: 90 Station: +1 - Uterus Uterus exam: Present: normal size, normal contour - Adnexa Adnexa: bilateral: normal - Anus/Rectum Anus/Rectum: Present: normal perianal skin Results Result Diagrams: 11/24/18 17:30 Abnormal lab results WBC 20.5 K/mcL (4.3-11.1) H 11/24/18 17:30 RBC 3.57 M/mcL (3.82-4.97) L 11/24/18 17:30 Hgb 11.1 g/dL (11.5-15.4) L 11/24/18 17:30 Hct 33.3 % (35.3-44.9) L 11/24/18 17:30 Neutrophils # 15.2 K/mcL (1.6-8.9) H 11/24/18 17:30 Monocytes # 1.7 K/mcL (0.0-1.3) H 11/24/18 17:30 All other labs normal. - VTE Reasons for not Prescribing Prophylaxis: Treatment not Indicated - Low risk for VTE
[2018-11-24] MEDS ORDERED: *HR* FentaNYL (PF) 100 MCG/2 ML VIAL ONE (18:08)
[2018-11-24] MEDS ORDERED: *HR* Ropivacaine/PF 0.2% 20 ML VIAL ONE (18:09)
[2018-11-24] MEDS ORDERED: Lidocaine -MPF 1% 5 ML AMPUL ONE (18:09)
--- NOTE | 2018-11-24 18:41 | Anesthesia Procedures ---
Addendum entered and electronically signed by Raghav Herbert CRNA 11/25/18 01:43: Infant A Delivery Date: 11/25/18 Infant Delivery Time: 00:16 Original Note: Date of Encounter: 11/24/18 Time of Encounter: 18:15 Procedures: Anesthesia - Epidural/Spinal Patient ID/Chart reviewed: Yes Patient examined: Yes OB Eval: Gestational age: 37.2 OB Eval: : 6 OB Eval: Hx Para: 4 OB Eval: Dilated at (cm): 6 OB Eval: Contractions: Non-stressed pattern Consent Obtained: Yes Site Prep: Aseptic Technique, Sterile prep and drape, Povidone-Iodine 1% Patient position: upright Local Anesthetic: Lidocaine 1% Amount of Local Anesthetic used: 3 Touhy Needle Gauge: 18 Touhy Needle Depth (cm): 5 Catheter Depth at Skin (cm): 15 Test Dose (1.5% Lido + Epi): Volume given (mls): 3 Test Dose Result: Negative Loading Dose: Fentanyl (mcg): 100 Loading Dose: Other: Ropivicaine 0.2% 5ml, 2ml NS Loading Dose Administered: Thru Catheter Infusion Med: 0.125% Bupivacaine w/ 2 mcg/ml Fentanyl Infusion Rate (mls/hr): [address]: Tegaderm, Tape Interspace Used: L3-L4 Loss of Resistance (RICKIE): Yes Blood: No CSF: No Paresthesia: No Procedure: QUANG placed 1st pass in upright position. RICKIE achieved with 0.9% normal saline. Negative Heme, negative CSF. No complications noted. VSS throughout. Vitals + FHT's: 1815 BP 110/69 P 83 R 20 1834 BP 104/58 P 85 R 16 FHT 120s
[2018-11-24] MEDS ORDERED: Penicillin G Potassium 2,500,000 UNIT in 0.9 % Sodium Chloride 100 ML IVPB SCH (20:00)
[2018-11-24] MEDS ORDERED: Oxytocin 20 units/ LR 1000 mL 20 UNIT/1,000 ML BAG IVC SCH (22:00)
--- NOTE | 2018-11-24 22:47 | OB Labor Progress Note ---
Date of Encounter: 11/24/18 Time of Encounter: 22:44 Labor Progress Note - Subjective Subjective: Patient comfortable with epidural - Cervix Cervix: 6/90/0 - Heart Tones Heart Tones: Baseline 150 Moderate variability Accelerations present 15 x 15 Few variable decelerations FHR category I - [place]: Contractions every 5+ minutes and palpate strong - Interventions Interventions: SVE AROM forebag with large amount of clear fluid - Plan Physician notified: No Plan: Continue expectant management Start pitocin and increase per protocol to contractions every 2-3 minutes Frequent position changes with peanut ball and tailor sitting Anticipate Dr. Laughlin updated on POC and agrees
--- NOTE | 2018-11-25 00:37 | OB/GYN Procedure Note ---
Delivery - Delivery Date: 11/25/18 Provider: Stefania Jernigan Intrapartum events: none Delivery induction: none Delivery augmentation: pitocin Delivery monitor: external FHT, external uterine Anesthesia: epidural Quantitated Blood Loss: 200 - (s) A Infant Delivery Date: 11/25/18 Delivery Time: 00:16 Presentation: vertex Position: OA Route of delivery: Gender: Male Viability: Viable Pounds: 6 Ounces: 5 Weight Gram: 2.875 kg at 1 minute: 8 at 5 mins: 9 Shoulder Dystocia: not encountered Specimens collected: cord blood Placenta: spontaneous Cord: nuchal cord, 3 umbilical vessels, nuchal reduced - Repair Episiotomy: none Laceration Description: None - Complications Delivery complications: none Delivery comments: This is a 28 year old G5 now P4014 who was admitted for spontaneous rupture of membranes in active labor. She progressed with Pitocin augmentation to the second stage of labor. She pushed for less than 5 minutes. She delivered a viable, male infant, OA, "Edd", over an intact perineum. A nuchal cord was identified and easily reduced. A shoulder dystocia was not encountered. The infant was placed on the maternal abdomen and allowed to transition spontaneously. The cord was double clamped by sterilization tech after pulsations ceased and cut by FOB. scores were 8 at 1 minute and 9 at 5 minutes. The weighed 6 lbs. 5 oz. (2875 g). The placented delivered ([place]) spontaneously, intact with a 3-vessel cord. Inspection revealed an intact perineum, vaginal giles, and cervix. The uterus was firm with no active bleeding. EBL was 200 mL. Placenta and umbilical artery blood gases were not sent. There were no complications during the procedure. Mom and baby are skin to skin following delivery. - Disposition Mom disposition: stable in LDR [place] disposition: stable in LDR
[2018-11-25] MEDS ORDERED: Methylergonovine 0.2 MG/ML AMPUL IM ONE (00:48)
[2018-11-25] MEDS ORDERED: miSOPROStol 100 MCG TABLET PO ONE (01:20)
[2018-11-25] MEDS ORDERED: Oxytocin 20 units/ LR 1000 mL 20 UNIT/1,000 ML BAG IVC SCH (01:46)
[2018-11-25] MEDS ORDERED: Acetaminophen 325 MG TABLET PO PRN (01:46)
[2018-11-25] MEDS ORDERED: Sennosides 8.6 MG TABLET PO PRN (01:46)
[2018-11-25] MEDS ORDERED: Rho Immune Globulin 1,500 UNIT SYRINGE IM PRN (01:46)
--- NOTE | 2018-11-25 01:47 | Event Note ---
Date of Encounter: 11/25/18 Time of Encounter: 01:18 RN notified activities assistant that patient was starting to have a steady trickle of blood. 0.2 mg of Methergine was given IM secondary to patient's history of hemorrhage and retained placenta. Vision Care Associate to bedside to evaluate bleeding. Upon entry activities assistant patient with large pad saturated. Manual exploration revealed several clots within the lower uterine segment. They were cleared. Continue to have a steady trickle and so 600mcg cytotec po ordered. Dr. Laughlin to bedside to evaluate bleeding. Bleeding had subsided by then. Dr. Laughlin also performed manual exploration and determined uterus to be clear. Will continue to monitor and treat as needed.
[2018-11-25] MEDS: Ibuprofen 600 MG TABLET PO PRN ×3 (04:57→22:55)
[2018-11-25] MEDS: Prenatal Vit/FA 1 EACH TABLET PO SCH (08:28)
[2018-11-25 12:02] LABS: Basophils # 0.1 K/mcL (0.0-0.2); Basophils % 0.4 %; Eosinophils % 0.1 %; Hematocrit 33.9 % (35.3-44.9); Hemoglobin 11.8 g/dL (11.5-15.4); Lymphocytes # 2.2 K/mcL (0.6-4.6); Lymphocytes % 10.8 %; Mean Corpuscular HGB Conc 34.8 g/dL (31.6-35.5); Mean Corpuscular Hemoglobin 31.4 pg (28.0-33.3); Mean Corpuscular Volume 90.2 fL (83.0-100.0); Mean Platelet Volume 10.9 fL (9.4-12.4); Monocytes # 2.4 K/mcL (0.0-1.3); Monocytes % 11.8 %; Neutrophils # 15.3 K/mcL (1.6-8.9); Platelet Count 177 K/mcL (140-400); Red Blood Count 3.76 M/mcL (3.82-4.97); Red Cell Distribution Width 12.7 % (11.5-14.5); Segmented Neutrophils % 74.9 %
[2018-11-26] MEDS: Ibuprofen 600 MG TABLET PO PRN (06:15)
[2018-11-26 08:50] VITALS: BP 101/61
--- NOTE | 2018-11-26 09:24 | Discharge Summary ---
Date of Encounter: 11/26/18 Time of Encounter: 09:24 - Discharge Diagnosis (1) Status post vaginal delivery Priority: Primary Status: Acute Comments: Pt meeting PPD1 milestones. Reports pain managed by Motrin. Discused c ontrol and safe spacing. Patient reports she has signed consent for Tubal. Declines bridge. Anticipate Discharge home today. Patient desires to guest while baby in [facility]. (2) Tobacco abuse Priority: Secondary Status: Acute Comments: Discussed risks of smoke exposure for baby. Patient denies being ready to quit at this time. (3) Encounter for monitoring Subutex maintenance therapy Priority: Secondary Status: Acute Comments: Continue maintenance and follow-up with Group (4) Rh negative status during Priority: Secondary Status: Acute Comments: Baby B Negative. Qualifiers: Trimester: third trimester Qualified Code(s): O26.893 - Other specified related conditions, third trimester; Z67.91 - Unspecified blood type, Rh negative (5) Bipolar 1 disorder Priority: Secondary Status: Acute Comments: Per patient, she had period of psychosis following last with hallucinations and no thoughts of harming self or baby. She reports it spontaneously resolved after 5 days. She is established with psychiatrist with a follow-up scheduled 12/02 to restart meds. Currently she denies any concerns. (6) Breast feeding status of mother Priority: Secondary Status: Acute Comments: Reports is going well. Denies pain with latch. - Discharge Medications Prescriptions: New Ibuprofen [Motrin] 600 mg PO Q6HR PRN #60 tablet PRN Reason: Cramping Docusate [Colace] 100 mg PO BID #60 capsule Continue Buprenorphine HCl [Subutex] 1 tab PO DAILY Discontinued Ferrous Sulfate [Iron] 1 tab PO DAILY Cephalexin [Keflex] 500 mg PO BID #14 capsule Nitrofurantoin Monohyd/M-Cryst [Macrobid 100 mg Capsule] 100 mg PO DAILY #30 capsule Home Medications: Buprenorphine HCl [Subutex] 1 tab PO DAILY 10/20/18 [History] Docusate [Colace] 100 mg PO BID #60 capsule 11/26/18 [Rx] Ibuprofen [Motrin] 600 mg PO Q6HR PRN #60 tablet 11/26/18 [Rx] Allergies/Adverse Reactions: Allergy/AdvReac Type Severity Reaction Status Date / Time No Known Allergies Allergy Verified 11/24/18 16:25 Data Procedures and tests throughout hospitalization: Laboratory Tests 11/24/18 11/24/18 11/24/18 17:30 17:30 17:30 WBC 20.5 H RBC 3.57 L Hgb 11.1 L Hct 33.3 L MCV 93.3 MCH 31.1 MCHC 33.3 RDW 12.8 Plt Count 191 MPV 10.7 Immature Gran % 3.5 Seg Neutrophils % 74.0 Lymphocytes % 13.1 Monocytes % 8.4 Eosinophils % 0.6 Basophils % 0.4 Neutrophils # 15.2 H Lymphocytes # 2.7 Monocytes # 1.7 H Eosinophils # 0.1 Basophils # 0.1 Urine Color Yellow Urine Clarity Cloudy A Urine pH 7.0 Ur Specific Rhodes 1.014 Urine Protein Negative Urine Glucose (UA) Normal Urine Ketones Negative Urine Blood Moderate H Urine Nitrite Positive A Urine Bilirubin Negative Urine Urobilinogen Normal Ur Leukocyte Esterase Large H Urine Microscopic RBC 0-3 Urine Microscopic WBC 15-30 H Ur Squamous Epith Cells Many H Urine Bacteria Many H Hyaline Casts None Seen Urine Opiates Screen Negative Ur Barbiturates Screen Negative Ur Phencyclidine Scrn Negative Ur Amphetamines Screen Negative U Benzodiazepines Scrn Negative Urine Cocaine Screen Negative U Marijuana (THC) Screen Negative Ur Drug Screen Interp See Below Baby's Blood Type Mother's Blood Type Rhogam Indicated 11/25/18 11/25/18 01:06 11:31 WBC 20.4 H RBC 3.76 L Hgb 11.8 Hct 33.9 L MCV 90.2 MCH 31.4 MCHC 34.8 RDW 12.7 Plt Count 177 MPV 10.9 Immature Gran % 2.0 Seg Neutrophils % 74.9 Lymphocytes % 10.8 Monocytes % 11.8 Eosinophils % 0.1 Basophils % 0.4 Neutrophils # 15.3 H Lymphocytes # 2.2 Monocytes # 2.4 H Eosinophils # 0.0 Basophils # 0.1 Urine Color Urine Clarity Urine pH Ur Specific Rhodes Urine Protein Urine Glucose (UA) Urine Ketones Urine Blood Urine Nitrite Urine Bilirubin Urine Urobilinogen Ur Leukocyte Esterase Urine Microscopic RBC Urine Microscopic WBC Ur Squamous Epith Cells Urine Bacteria Hyaline Casts Urine Opiates Screen Ur Barbiturates Screen Ur Phencyclidine Scrn Ur Amphetamines Screen U Benzodiazepines Scrn Urine Cocaine Screen U Marijuana (THC) Screen Ur Drug Screen Interp Baby's Blood Type B RH NEGATIVE Mother's Blood Type O RH NEGATIVE Rhogam Indicated NO Labs on day of discharge: Labs from last 24 hours 11/25/18 11/25/18 11:31 01:06 WBC 20.4 H RBC 3.76 L Hgb 11.8 Hct 33.9 L MCV 90.2 MCH 31.4 MCHC 34.8 RDW 12.7 Plt Count 177 MPV 10.9 Immature Gran % 2.0 Seg Neutrophils % 74.9 Lymphocytes % 10.8 Monocytes % 11.8 Eosinophils % 0.1 Basophils % 0.4 Neutrophils # 15.3 H Lymphocytes # 2.2 Monocytes # 2.4 H Eosinophils # 0.0 Basophils # 0.1 Rhogam Indicated NO Date of admission: 11/24/18 17:33 Primary care physician: PCP TANNA Consults: 11/25/18 01:46 Consult to Mine Engineering Superintendent [CONS] Routine Comment: Vaginal delivery, consult needed Consult to Computer Trainer [CONS] Routine Reason for SW Consult: frequent no shows and +drug screens Discharging clinician: Tita Espino Anticipated date of discharge: 11/26/18 - Patient Status Disposition: Home, Self-Care Condition: Good Functional capacity at discharge: independent ambulation Overall status at discharge: patient is progressing back to baseline - Discharge Instructions Follow Up With: NONE,PCP [Primary Care Provider] - Kevin Del Rosario MD [Partnered Physician] - - Diet and Activity Activity: increase activity as tolerated Diet: advance to your usual diet Hospital Course Reason for admission: active labor, rupture of membranes, IUP at term Delivery: Episiotomy: none Laceration: none Other procedures: none complications: none Discharge diagnosis: IUP at term delivered Mears baby: male Hospital course: - Delivery Date: 11/25/18 Provider: Stefania Jernigan Intrapartum events: none Delivery induction: none Delivery augmentation: pitocin Delivery monitor: external FHT, external uterine Anesthesia: epidural Quantitated Blood Loss: 200 - (s) Infant A Infant Delivery Date: 11/25/18 Infant Delivery Time: 00:16 Presentation: vertex Position: OA Route of delivery: Gender: Male Viability: Viable Pounds: 6 Ounces: 5 Weight Gram: 2.875 kg at 1 minute: 8 at 5 mins: 9 Shoulder Dystocia: not encountered Specimens collected: cord blood Placenta: spontaneous Cord: nuchal cord, 3 umbilical vessels, nuchal reduced - Repair Episiotomy: none Laceration Description: None - Complications Delivery complications: none Delivery comments: Time spent discussing smoking cessation with patient: 3 to 10 minutes Time Attestation: Total time spent providing and/or coordinating discharge services: Time Spent: Less than 30 minutes Exam - Constitutional Vitals: Temp Pulse Resp BP Pulse Ox 97.7 F 60 14 101/61 98 11/26/18 07:30 11/26/18 07:30 11/26/18 08:02 11/26/18 07:30 11/25/18 19:50 General appearance IM: cooperative, A&O X 3, pleasant, no acute distress - Respiratory Respiratory exam: Present: CTAB - Cardiovascular Cardiovascular exam IM: Present: RRR, +S1, +S2 - GI/Abdominal GI/Abdominal exam IM: normal bowel sounds, soft, no peritoneal signs - Uterine Tone: Firm Uterus Position: 2 Fingers Below Umbilicus, Midline - Extremities Exam Extremities exam IM: Present: normal capillary refill, normal inspection. Absent: calf tenderness - Neurological Exam Neurological exam: alert, oriented X3, reflexes normal - Psychiatric Additional comments: reports good mood
[2018-11-26] MEDS: Prenatal Vit/FA 1 EACH TABLET PO SCH (10:44)
== END 2018-11-26 12:42 | disposition home or self-care (01) | DRG 560 ==
LOC: 1NENULAB → 1NENUOBS 11-25 03:57
PROVIDERS: ADMIT Advanced Practice Midwife; ATTEND Advanced Practice Midwife